=== PATIENT | male | born 1955 | race Caucasian/White ===

== ENCOUNTER 2018-05-05 07:30 | Day surgery (SDC) | payer OTHER ==
[~2018-05-05] VITALS: Ht 185.4 cm; Wt 126.1 kg
[~2018-05-05 07:30] MED LIST: ASPI325 PO; ASPI81CH PO; ATOR40TA PO; BENAML10/2 PO; Cholest Off450 MG PO; DICL75ER PO; FISH1000 PO; FURO40 PO; GLYMET5 PO; Lotrel 10-20 M1 EACH PO; MELATONIN 5 MG1 EACH PO; METF500C PO; MULTI VITAMIN1 EACH PO; OXYACE5T PO; POTCHL20ER PO; Prednisone20 MG PO; Prilosec Otc20 MG; Prilosec Otc20 MG PO; Sm Glucosamine1 EACH PO; TAMS.4ER PO; TRIHYD253A PO; UBID100 PO; Vitamin C1000 M1 PO; [UNRECOGNIZED DRUG - OTHER] PO
== END 2018-05-05 22:43 | disposition home or self-care (01) ==
LOC: ORSCMMR 07:30 → ORD 08:30 → ORSCMMR 22:43
PROVIDERS: Internal Medicine Gastroenterology
PROC: 0DBN8ZX Excision of Sigmoid Colon, Via Natural or Artificial Opening Endoscopic, Diagnostic (ICD-10-PCS; principal; 2018-05-05 08:30)
PROC: 0DBK8ZX Excision of Ascending Colon, Via Natural or Artificial Opening Endoscopic, Diagnostic (ICD-10-PCS; principal; 2018-05-05 08:30)
DX: Z12.11 Encounter for screening for malignant neoplasm of colon (principal); Z80.0 Family history of malignant neoplasm of digestive organs; D12.5 Benign neoplasm of sigmoid colon; D12.2 Benign neoplasm of ascending colon; I10 Essential (primary) hypertension; E11.9 Type 2 diabetes mellitus without complications; Z79.899 Other long term (current) drug therapy; Z79.82 Long term (current) use of aspirin; Z87.891 Personal history of nicotine dependence
CPT/HCPCS: 88305; J2250; J7030

== ENCOUNTER → 2019-01-19 | Outpatient (CLI) | payer OTHER | END | disposition home or self-care (01) | LOC: LAB SHORT 12:37 → PLD 12:37 | DX: C44.310 Basal cell carcinoma of skin of unspecified parts of face (principal) | CPT/HCPCS: 88305 ==

== ENCOUNTER → 2019-02-23 | Outpatient (CLI) | payer OTHER | END | disposition home or self-care (01) | LOC: LAB SHORT 08:54 → PLD 08:54 | DX: C44.310 Basal cell carcinoma of skin of unspecified parts of face (principal) | CPT/HCPCS: 88305 ==

== ENCOUNTER 2019-05-28 19:53 | Emergency (ER) | payer OTHER ==
[~2019-05-28] VITALS: Ht 185.4 cm; Wt 117.9 kg
== END 2019-05-28 20:36 | disposition home or self-care (01) ==
LOC: ER 19:53
DX: S90.112A Contusion of left great toe without damage to nail, initial encounter (principal); Z88.1 Allergy status to other antibiotic agents; Z88.8 Allergy status to other drugs, medicaments and biological substances; Z91.013 Allergy to seafood; Z91.030 Bee allergy status; Z87.891 Personal history of nicotine dependence; W22.8XXA Striking against or struck by other objects, initial encounter
CPT/HCPCS: 73660; 99283-25

== ENCOUNTER → 2019-09-30 | Outpatient (CLI) | payer MEDICARE | END | disposition home or self-care (01) | LOC: PLD 14:16 → LAB SHORT 14:16 | DX: L91.8 Other hypertrophic disorders of the skin (principal) | CPT/HCPCS: 88304 ==

== ENCOUNTER 2021-11-27 08:32 | Day surgery (SDC) | payer MEDICARE ==
[~2021-11-27] VITALS: Ht 185.4 cm; Wt 116.3 kg
[~2021-11-27 08:32] MED LIST changes: +Aspir 8181 MG PO; +Azor 5-20 MG T1 EACH PO; +COENZYME Q-1030 MG; +GLYBURIDE-METF1 EACH PO; +Lovastatin20 MG PO; +MELATONIN; +POTA10T PO
--- NOTE | 2021-11-27 08:57 | NUR ---
Ambulatory in Day Surgery History, Chart, Medications and Allergies reviewed before start of procedure. Lungs clear T/O to Auscultation. Patient confirms NPO status and agrees with scheduled surgery. Pre-Op teaching done. Pt verbalizes understanding. Patient States Post-Procedure ride home has been arranged.
--- NOTE | 2021-11-27 09:42 | NUR ---
11/27/21 0942 CRISTELA JACK History, Chart, Medications and Allergies reviewed before start of procedure. Patient confirms NPO status and agrees with scheduled surgery. 3-LEAD EKG REVIEWED WITH PHYSICIAN PRIOR TO START OF PROCEDURE. MONITOR INTACT WITH CONTINUOUS PULSE OXIMETRY AND INTERMITTENT BP. PATIENT DETERMINED TO BE ASA APPROPRIATE FOR PROPOFOL SEDATION PRIOR TO START OF PROCEDURE BY DR. PIMENTEL. 02 VIA POM MASK.
--- NOTE | 2021-11-27 10:55 | NUR ---
Patient States Post-Procedure ride home has been arranged. Discharge instructions reviewed with patient. Patient verbalizes understanding. Copy given to patient to take home. Discharged via wheelchair to private car for ride home.
== END 2021-11-27 11:00 | disposition home or self-care (01) ==
LOC: ORSCMMR 08:32 → ORD 09:30 → ORSCMMR 09:30
PROVIDERS: Internal Medicine Gastroenterology
PROC: 0DB58ZX Excision of Esophagus, Via Natural or Artificial Opening Endoscopic, Diagnostic (ICD-10-PCS; principal; 2021-11-27 09:30)
PROC: 0DB68ZX Excision of Stomach, Via Natural or Artificial Opening Endoscopic, Diagnostic (ICD-10-PCS; principal; 2021-11-27 09:30)
PROC: 0DB48ZX Excision of Esophagogastric Junction, Via Natural or Artificial Opening Endoscopic, Diagnostic (ICD-10-PCS; principal; 2021-11-27 09:30)
PROC: 0D758ZZ Dilation of Esophagus, Via Natural or Artificial Opening Endoscopic (ICD-10-PCS; principal; 2021-11-27 09:30)
PROC: 0DBH8ZX Excision of Cecum, Via Natural or Artificial Opening Endoscopic, Diagnostic (ICD-10-PCS; 2021-11-27 09:30)
DX: R13.14 Dysphagia, pharyngoesophageal phase (principal); Z86.010 Personal history of colon polyps; Z80.0 Family history of malignant neoplasm of digestive organs; K63.5 Polyp of colon; K44.9 Diaphragmatic hernia without obstruction or gangrene; I10 Essential (primary) hypertension; E11.9 Type 2 diabetes mellitus without complications; F32.A Depression, unspecified; Z87.891 Personal history of nicotine dependence; Z79.84 Long term (current) use of oral hypoglycemic drugs; Z79.82 Long term (current) use of aspirin; Z79.899 Other long term (current) drug therapy
CPT/HCPCS: 82947; 88305; 88342; A9270; C1726; J2250; J2704; J7120

== ENCOUNTER → 2022-10-08 | Outpatient (CLI) | payer MEDICARE | END | disposition home or self-care (01) | LOC: PLD 08:32 → LAB SHORT 08:32 → LAB 08:32 | DX: C44.319 Basal cell carcinoma of skin of other parts of face (principal); C44.619 Basal cell carcinoma of skin of left upper limb, including shoulder | CPT/HCPCS: 88305 ==

== ENCOUNTER → 2023-09-23 | Outpatient (CLI) | payer MEDICARE | LOC: LAB 14:45 → PLD 14:45 → LAB SHORT 14:45 | DX: C44.320 Squamous cell carcinoma of skin of unspecified parts of face (principal) | CPT/HCPCS: 88305 ==

== ENCOUNTER 2024-09-12 19:58 | Emergency (ER) | payer MEDICARE ==
[~2024-09-12] VITALS: Ht 185.4 cm; Wt 108.9 kg
[2024-09-12 20:30] LABS: BASOPHILS ABSOLUTE AUTO 0.03 K/mm3 (0.00-0.23); BASOPHILS PERCENT AUTO 1 % (0-2); EOSINOPHILS ABSOLUTE AUTO 0.03 K/mm3 (0.00-0.68); EOSINOPHILS PERCENT AUTO 1 % (0-6); Hematocrit 35.9 % (37.0-53.0); Hemoglobin 11.7 g/dL (13.5-17.5); IMMATURE GRAN ABSOLUTE AUTO 0.02 K/mm3 (0.00-0.10); IMMATURE GRAN PERCENT AUTO 0 % (0-1); LYMPHOCYTES ABSOLUTE AUTO 0.38 K/mm3 (0.84-5.20); LYMPHOCYTES PERCENT AUTO 7 % (21-46); MONOCYTES ABSOLUTE AUTO 0.47 K/mm3 (0.16-1.47); MONOCYTES PERCENT AUTO 8 % (4-13); Mean Corpuscular HGB 31.7 pg (26.0-34.0); Mean Corpuscular HGB Conc 32.6 g/dL (31.5-36.5); Mean Corpuscular Volume 97 fL (80-100); Mean Platelet Volume 9.1 fL (9.1-12.4); NEUTROPHILS ABSOLUTE AUTO 4.87 K/mm3 (1.96-9.15); NEUTROPHILS PERCENT AUTO 84 % (41-73); Platelet Count 83 K/mm3 (150-400); RDW Coefficient Variation 14.4 % (11.7-14.2); RDW Standard Deviation 51.2 fL (35.1-46.3); Red Blood Cell Count 3.69 M/mm3 (4.30-5.90)
[2024-09-12 20:49] LABS: Albumin, Blood 3.3 g/dL (3.4-5.0); Albumin/Globulin Ratio 0.9 (0.8-1.8); Bilirubin, Total 1.8 mg/dL (0.1-1.0); Bun/Creatinine Ratio 29.6 (12.0-20.0); Creatinine, Blood 0.95 mg/dL (0.60-1.20); Globulin, Blood 3.8 g/dL (2.2-4.0); Potassium, Blood 4.1 mmol/L (3.5-5.5); Total Protein, Blood 7.1 g/dL (6.4-8.2)
[2024-09-13] VITALS: BP 136/92
== END 2024-09-13 02:01 | disposition home or self-care (01) ==
LOC: ER 19:58
PROVIDERS: Emergency Medicine
DX: S82.62XA Displaced fracture of lateral malleolus of left fibula, initial encounter for closed fracture (principal); Z96.652 Presence of left artificial knee joint; Z85.46 Personal history of malignant neoplasm of prostate; Z87.891 Personal history of nicotine dependence; Z59.89 Other problems related to housing and economic circumstances; Z91.038 Other insect allergy status; Z88.1 Allergy status to other antibiotic agents; Z79.84 Long term (current) use of oral hypoglycemic drugs; Z79.899 Other long term (current) drug therapy; Z79.1 Long term (current) use of non-steroidal anti-inflammatories (NSAID); Z79.82 Long term (current) use of aspirin; W18.09XA Striking against other object with subsequent fall, initial encounter
CPT/HCPCS: 29515; 36415; 73562-LT; 73562-RT; 73610; 80053; 82550; 85025; 93005; 93010; 99284-25

== ENCOUNTER → 2025-01-07 | Emergency (ER) | payer MEDICARE ==
[~2025-01-07] VITALS: Ht 185.4 cm; Wt 108.9 kg
[~2025-01-07] MED LIST changes: +AMLODIPINE-BEN1 EAC2 PO; +CEPACOL THROAT1 EAC1 MT; +NUBEQA300 MG PO; +PANT20 PO; +Phytonadione 5 MG in NS 50 ML IV ONE; +[UNRECOGNIZED DRUG - CODE] PR
[2025-01-07 10:58] LABS: Bun/Creatinine Ratio 14.7 (12.0-20.0); Calcium, Blood 8.6 mg/dL (8.5-10.1); Creatinine, Blood 1.7 mg/dL (0.60-1.20); Potassium, Blood 3.8 mmol/L (3.5-5.5)
[2025-01-07 12:50] VITALS: BP 134/72
== END ==
LOC: ER 09:55
PROVIDERS: Emergency Medicine
DX: T83.091A Other mechanical complication of indwelling urethral catheter, initial encounter (principal); E11.9 Type 2 diabetes mellitus without complications; E78.00 Pure hypercholesterolemia, unspecified; Z87.448 Personal history of other diseases of urinary system; Z87.891 Personal history of nicotine dependence; Z79.899 Other long term (current) drug therapy; Z91.030 Bee allergy status; Z88.1 Allergy status to other antibiotic agents
CPT/HCPCS: 51700; 51798; 80048; 99283-25; J3430

== ENCOUNTER 2025-02-11 07:50 | Emergency (ER) | payer MEDICARE ==
[~2025-02-11] VITALS: Ht 185.4 cm; Wt 108.9 kg
[~2025-02-11 07:50] MED LIST changes: -Phytonadione 5 MG in NS 50 ML IV ONE
[2025-02-11] MEDS ORDERED: FUROSEMIDE40 MG PO (08:52)
[2025-02-11] MEDS ORDERED: TAMSULOSIN HCL0.4 M1 PO (08:52)
[2025-02-11 09:11] LABS: Source, Urine Foley catheter
[2025-02-11 09:17] LABS: Appearance, Urine Cloudy (Clear); Bilirubin, Urine Neg (Neg); Blood, Urine 5+ (Neg); Color, Urine Yellow (P-Yellow); Glucose Qualitative, Urine Neg (Neg); Ketones, Urine Neg (Neg); Leukocyte Esterase, Urine 2+ (Neg); Nitrite, Urine Neg (Neg); Protein, Urine 3+ (Neg); Urobilinogen, Urine 1+ (Normal)
[2025-02-11 09:24] LABS: Bacteria Few /hpf; Squamous Epithelial Cells Few /hpf (Few)
[2025-02-11 09:37] LABS: Red Blood Cells, Urine 50-100 /hpf (0-2)
[2025-02-11 09:39] LABS: Triple Phosphate Crystals Rare /hpf
[2025-02-11 10:30] VITALS: BP 130/91
== END 2025-02-11 10:48 | disposition home or self-care (01) ==
LOC: ER 07:50
PROVIDERS: Student in an Organized Health Care Education/Training Program
DX: T83.098A Other mechanical complication of other urinary catheter, initial encounter (principal); R82.71 Bacteriuria; R31.9 Hematuria, unspecified; I10 Essential (primary) hypertension; E78.00 Pure hypercholesterolemia, unspecified; E11.9 Type 2 diabetes mellitus without complications; F32.A Depression, unspecified; C61 Malignant neoplasm of prostate; C79.9 Secondary malignant neoplasm of unspecified site; Z88.1 Allergy status to other antibiotic agents; Z79.899 Other long term (current) drug therapy; Z79.84 Long term (current) use of oral hypoglycemic drugs; Z87.891 Personal history of nicotine dependence
CPT/HCPCS: 51702; 81001; 87086; 99283-25

== ENCOUNTER 2025-05-30 15:37 | Inpatient (IN) | payer MEDICARE ==
[~2025-05-30] VITALS: Ht 185.4 cm; Wt 108.3 kg
[2025-05-30] VITALS (12 sets, daily range): BP systolic 72–110; BP diastolic 49–64
[~2025-05-30 15:37] MED LIST changes: +DOCU100 PO; +FUROSEMIDE40 MG PO; +LACT10SY PO; +TAMSULOSIN HCL0.4 M1 PO
[2025-05-30] MEDS ORDERED: NS 1,000 ML IV ONE (15:38)
[2025-05-30] MEDS ORDERED: NS 1,000 ML IV SCH (15:45)
[2025-05-30 16:19] LABS: Hematocrit 24.1 % (37.0-53.0); Hemoglobin 8.0 g/dL (13.5-17.5); Mean Corpuscular HGB Conc 33.2 g/dL (31.5-36.5); Mean Corpuscular Volume 93 fL (80-100); NRBC ABSOLUTE 0.00 K/mm3 (0.00-0.02); NRBC Auto 0.0 /100 WBC (0.0-0.2); Platelet Count 110 K/mm3 (150-400); RDW Coefficient Variation 15.9 % (11.7-14.2); RDW Standard Deviation 53.2 fL (35.1-46.3)
[2025-05-30 16:49] LABS: Alanine Aminotransfer (ALT/SGP 75.0 U/L (12-78); Albumin, Blood 2.4 g/dL (3.4-5.0); Albumin/Globulin Ratio 0.7 (0.8-1.8); Anion Gap 11.0 mmol/L (3-11); Aspartate Aminotrans (AST/SGOT 55.0 U/L (12-37); Bilirubin, Total 1.1 mg/dL (0.1-1.0); Blood Urea Nitrogen 21.0 mg/dL (8-24); CO2, Blood 26.0 mmol/L (21-32); Calcium, Blood 8.5 mg/dL (8.5-10.1); Chloride, Blood 100.0 mmol/L (98-108); Creatinine, Blood 0.9 mg/dL (0.60-1.20); Globulin, Blood 3.5 g/dL (2.2-4.0); Glucose, Blood 151.0 mg/dL (70-99); Potassium, Blood 3.0 mmol/L (3.5-5.5); Sodium, Blood 134.0 mmol/L (136-145); Total Protein, Blood 5.9 g/dL (6.4-8.2)
[2025-05-30 17:00] LABS: BASOPHILS ABSOLUTE MAN 0.06 K/mm3 (0.00-0.23); BASOPHILS PERCENT MAN 1 % (0-2); EOSINOPHILS ABSOLUTE MAN 0.00 K/mm3 (0.00-0.68); EOSINOPHILS PERCENT MAN 0 % (0-6); LYMPHOCYTES % ATYPICAL MANUAL 1 % (0-0); LYMPHOCYTES ABSOLUTE MAN 0.89 K/mm3 (0.84-5.20); LYMPHOCYTES PERCENT MAN 12 % (21-46); METAMYELOCYTE ABSOLUTE MAN 0.13 K/mm3 (0.00-0.00); METAMYELOCYTE PERCENT MAN 2 % (0-0); MONOCYTES ABSOLUTE MAN 0.13 K/mm3 (0.16-1.47); MONOCYTES PERCENT MAN 2 % (4-13); MYELOCYTE ABSOLUTE MAN 0.27 K/mm3 (0.00-0.00); MYELOCYTE PERCENT MAN 4 % (0-0); NEUTROPHILS ABSOLUTE MAN 5.36 K/mm3 (1.96-9.15); SEG NEUTROPHILS PERCENT MAN 78 % (41-73)
[2025-05-30 17:17] LABS: Magnesium, Blood 1.7 mg/dL (1.6-2.4)
[2025-05-30 17:18] LABS: Thyroid Stimulating Hormone 1.4 uIU/mL (0.360-4.800)
[2025-05-30] MEDS ORDERED: Ondansetron HCl 2 MG / ML 2ML Vial IV PRN (19:10)
[2025-05-30] MEDS ORDERED: Magnesium Sulf 2 GM/Water 50ML 50 ML IV ONE (19:20)
[2025-05-30] MEDS ORDERED: Potassium Chl 20MEQ/Water100ML 100 ML IV ONE (19:25)
[2025-05-30] MEDS ORDERED: Lidocaine 2% Jelly Uro-Jet UR ONE (20:40)
[2025-05-30] MEDS ORDERED: NUBEQA 300 MG PO SCH (22:32)
--- NOTE | 2025-05-30 23:39 | NUR ---
ADMISSION PT ARRIVED FROM ED VIA [facility]IAHCHER ON MONITOR AND WITH RN. PT WAS PLACED IN BED IN ICU 15, ATTACHED TO MONITOR. PT DENIES PAIN AT THIS TIME. PT ON AMIO GTT - TITRTAION PER FLOWSHEET. PT ARRIVED, BP SOFT, IMPROVED ONCE HR DOWNTREADED. PT IS IN AN AFIB/AFLUTTER HR 90'S-140'S. VSS OTHERWISE.
--- NOTE | 2025-05-30 23:43 | NUR ---
SABILLON CATH PT WITH CHRONIC INDWELLING SABILLON CATH. PT EDUCATED ON NEED TO EXCHANGE SABILLON CATH UPON ADMISSION TO HOSPITAL. PT STATES HE DOES NOT WANT SABILLON CATH EXCHANGED AT THIS TIME. PT STATES "VERY DIFFICULT TO PLACE", AND DECLINES SABILLON EXCHANGE AT THIS TIME.
--- NOTE | 2025-05-30 23:45 | NUR ---
ADMISSION SKIN NOTE NOTED UPON ADMIT, BREAKDOWN TO ARIELLE BUTTOCKS. MD PEACOCK NOTIFIED OF ABOVE, NO NEW ORDERS AT THIS TIME. SEE PAPER CHART FOR SKIN PHOTO. PT EDUCATED ON NEED TO REPOSITION Q2H.
[2025-05-31] VITALS (44 sets, daily range): BP systolic 92–141; BP diastolic 44–92
[2025-05-31 03:55] LABS: Hematocrit 22.8 % (37.0-53.0); Hemoglobin 7.6 g/dL (13.5-17.5); Mean Corpuscular HGB Conc 33.3 g/dL (31.5-36.5); Mean Corpuscular Volume 94 fL (80-100); NRBC ABSOLUTE 0.02 K/mm3 (0.00-0.02); NRBC Auto 0.4 /100 WBC (0.0-0.2); Platelet Count 105 K/mm3 (150-400); RDW Coefficient Variation 15.9 % (11.7-14.2); RDW Standard Deviation 54.3 fL (35.1-46.3)
[2025-05-31 04:07] LABS: Prothrombin Time Results 12.4 Sec (9.7-11.5)
[2025-05-31 04:17] LABS: Alanine Aminotransfer (ALT/SGP 68.0 U/L (12-78); Albumin, Blood 2.4 g/dL (3.4-5.0); Albumin/Globulin Ratio 0.7 (0.8-1.8); Anion Gap 6.0 mmol/L (3-11); Aspartate Aminotrans (AST/SGOT 44.0 U/L (12-37); Bilirubin, Total 0.8 mg/dL (0.1-1.0); Blood Urea Nitrogen 17.0 mg/dL (8-24); CO2, Blood 27.0 mmol/L (21-32); Calcium, Blood 8.0 mg/dL (8.5-10.1); Chloride, Blood 105.0 mmol/L (98-108); Creatinine, Blood 0.84 mg/dL (0.60-1.20); Globulin, Blood 3.4 g/dL (2.2-4.0); Glucose, Blood 192.0 mg/dL (70-99); Magnesium, Blood 2.2 mg/dL (1.6-2.4); Potassium, Blood 3.0 mmol/L (3.5-5.5); Sodium, Blood 135.0 mmol/L (136-145); Total Protein, Blood 5.8 g/dL (6.4-8.2)
[2025-05-31 04:18] LABS: BAND PERCENT MAN 6 % (0-8); BASOPHILS ABSOLUTE MAN 0.05 K/mm3 (0.00-0.23); BASOPHILS PERCENT MAN 1 % (0-2); EOSINOPHILS ABSOLUTE MAN 0.05 K/mm3 (0.00-0.68); EOSINOPHILS PERCENT MAN 1 % (0-6); LYMPHOCYTES ABSOLUTE MAN 0.42 K/mm3 (0.84-5.20); LYMPHOCYTES PERCENT MAN 8 % (21-46); MONOCYTES ABSOLUTE MAN 0.26 K/mm3 (0.16-1.47); MONOCYTES PERCENT MAN 5 % (4-13); NEUTROPHILS ABSOLUTE MAN 4.49 K/mm3 (1.96-9.15); SEG NEUTROPHILS PERCENT MAN 79 % (41-73)
--- NOTE | 2025-05-31 05:35 | NUR ---
SHIFT SUMMARY PT IS A&O X4, ABLE TO SPENCER, FOLLOWS COMMANDS, AND ABLE TO MAKE NEEDS KNOWN. PT IS ON RA. PT IS IN A AFIB/A FLUTTER. PT WITH CARB CONTROL DIET, SMALL INCONTINENT BM UPON ARRIVAL TO UNIT. SABILLON CATH PATENT (SEE SABILLON CATH NOTE). WOUND TO BUTTOCKS (SEE SKIN NOTE). PIV X3. AMIO GTT - TITRATION PER JAN. POTASSIUM 3.0 THIS AM, NOTIFIED, ORDER TO REPLACE POTASSIUM WITH 40MEQ'S IV KCL. PT DENIES PAIN. VSS OVERNIGHT. PT ENCOURAGED TO REPOSITION Q2H, PT AGREEABLE BUT DOES NEED ENCOURAGMENT - EDUCATED PT ON NEED TO REPOSITION FREQUENTLY TO PREVENT FURTHER SKIN BREAK DOWN.
[2025-05-31] MEDS ORDERED: Insulin Human Lispro 100 Units/ML 3ML Syringe SC SCH ×2 (07:30)
--- NOTE | 2025-05-31 10:34 | NUR ---
ASSUMPTION OF CARE ASSUMED CARE OF PATIENT AT APPROXIMATELY 0700. PT RESTING IN BED, ALERT AND ORIENTED X4. PT ANSWERS QUESTIONS APPROPRIATELY, FOLLOWS DIRECTION WHEN PROMTPED AND IS ABLE TO MAKE HIS NEEDS KNOWN, PT MOVES EXTREMITIES EQUALLY BILATERALLY, ASSISTS WITH TURNS. PT DENIES PAIN AT TIME OF ASSESSMENT. HR 100'S AFIB AT START OF SHIFT, DURING REPOSITIONING PT CONVERTED TO A FAST REGULAR RHYTHM WITH A RATE IN THE 130-150'S, EKG PERFORMED WHICH SHOWED SINUS TACH WITH A RATE OF 146BPM, DR. FORD INFORMED, ORDERS RECEIVED. PT HR CURRENTLY 70'S SINUS, MAP >65, PT DENIES CP/PRESSURE. AMIODARONE DRIP INFUSING AT 0.5MG/MIN. PT ON RA, OXYGEN SATURATION >95%. ABDOMEN SOFT, BOWEL TONES ACTIVE THROGHOUT, PT DENEIS N/V. PT HAS CHRONIC INDWELLING SABILLON IN PLACE PATENT DRIANING YELLOW URINE TO GRAVITY. PIV IN PLACE TO LEFT HAND, LAC AND JACKIE. BED IN LOWEST POSITION, CALL LIGHT WITHIN REACH, CARE CONTINUES.
[2025-05-31] MEDS ORDERED: CO Q10100 MG PO (12:22)
[2025-05-31] MEDS ORDERED: PRESERVISION A1 EAC1 PO (12:23)
--- NOTE | 2025-05-31 12:29 | NUR ---
PT UPDATE HOME MEDICATION LIST RECONCILLED WITH PTS. . CARE CONTINTUES.
[2025-05-31] MEDS ORDERED: Amiodarone HCl 450 MG in NS 250 ML IV SCH (13:05)
--- NOTE | 2025-05-31 17:46 | NUR ---
SHIFT SUMMARY PT CONTINUES TO REST IN BED, ALERT AND ORIENTED X4. PT ANSWERS QUESTIONS APPROPRIATELY, FOLLOWS DIRECTION WHEN PROMPTED AND IS ABLE TO MAKE HIS NEEDS KNOWN. PT MOVES EXTREMITIES EQUALLY BILATERALLY, ASSITS WITH TURNS. HR 60-140'S THIS SHIFT, ALTERNATING BETWEEN SINUS AND AFIB, AMIODARONE DRIP OFF AT APPROXIMATELY 1725, SEE FLOWSHEET. MAP >65, PT HAS DENIED CP/PRESSURE THIS SHIFT. PT ON RA, OXYGEN SATURATION >95%. ABDOMEN SOFT, BOWEL TONES ACTIVE THROUGHOUT. SABILLON IN PLACE PATENT DRAINING YELLOW URINE TO GRAVITY. PIV IN PLACE TO LAC AND JACKIE SL. BED IN LOWEST POSITION, CALL LIGHT WITHIN REACH, CARE CONTINUES.
--- NOTE | 2025-05-31 19:45 | NUR ---
ASSUMPTION OF CARE ASSUMED PT'S CARE AT 1900,BEDSIDE REPORT COMPLETED.PT IN BED WIDE AWAKE.PLAN OF CARE REVIEWED.SABILLON PATENT DRAINING CLEAR YELLOW URINE.PT STATES THAT THE SABILLON WAS CHANGED 11/2 WEEKS AGO.PT DENIES PAIN,DENIES NEEDS AT THIS TIME.CALL LIGHT AND PT'S ITEMS WITHIN REACH.MONITORING ONGOING PER CAREPLAN.
[2025-05-31] MEDS ORDERED: Arginine/Glutamine/Calcium Hmb 1 Packet PO SCH (21:00)
[2025-06-01] VITALS (13 sets, daily range): BP systolic 101–143; BP diastolic 55–96
[2025-06-01 04:24] LABS: Hematocrit 21.8 % (37.0-53.0); Hemoglobin 6.9 g/dL (13.5-17.5); Mean Corpuscular HGB Conc 31.7 g/dL (31.5-36.5); Mean Corpuscular Volume 95 fL (80-100); NRBC ABSOLUTE 0.02 K/mm3 (0.00-0.02); NRBC Auto 0.6 /100 WBC (0.0-0.2); Platelet Count 105 K/mm3 (150-400); RDW Coefficient Variation 16.0 % (11.7-14.2); RDW Standard Deviation 55.1 fL (35.1-46.3)
[2025-06-01 04:57] LABS: BAND PERCENT MAN 7 % (0-8); BASOPHILS ABSOLUTE MAN 0.03 K/mm3 (0.00-0.23); BASOPHILS PERCENT MAN 1 % (0-2); EOSINOPHILS ABSOLUTE MAN 0.03 K/mm3 (0.00-0.68); EOSINOPHILS PERCENT MAN 1 % (0-6); LYMPHOCYTES ABSOLUTE MAN 0.32 K/mm3 (0.84-5.20); LYMPHOCYTES PERCENT MAN 9 % (21-46); METAMYELOCYTE ABSOLUTE MAN 0.07 K/mm3 (0.00-0.00); METAMYELOCYTE PERCENT MAN 2 % (0-0); MONOCYTES ABSOLUTE MAN 0.25 K/mm3 (0.16-1.47); MONOCYTES PERCENT MAN 7 % (4-13); MYELOCYTE ABSOLUTE MAN 0.14 K/mm3 (0.00-0.00); MYELOCYTE PERCENT MAN 4 % (0-0); NEUTROPHILS ABSOLUTE MAN 2.72 K/mm3 (1.96-9.15); SEG NEUTROPHILS PERCENT MAN 69 % (41-73)
[2025-06-01 07:16] LABS: Alanine Aminotransfer (ALT/SGP 50.0 U/L (12-78); Albumin, Blood 2.3 g/dL (3.4-5.0); Albumin/Globulin Ratio 0.7 (0.8-1.8); Anion Gap 6.0 mmol/L (3-11); Aspartate Aminotrans (AST/SGOT 31.0 U/L (12-37); Bilirubin, Total 0.7 mg/dL (0.1-1.0); Blood Urea Nitrogen 15.0 mg/dL (8-24); CO2, Blood 27.0 mmol/L (21-32); Calcium, Blood 8.6 mg/dL (8.5-10.1); Chloride, Blood 107.0 mmol/L (98-108); Creatinine, Blood 0.86 mg/dL (0.60-1.20); Globulin, Blood 3.3 g/dL (2.2-4.0); Glucose, Blood 97.0 mg/dL (70-99); Potassium, Blood 3.8 mmol/L (3.5-5.5); Sodium, Blood 136.0 mmol/L (136-145); Total Protein, Blood 5.6 g/dL (6.4-8.2)
--- NOTE | 2025-06-01 07:31 | NUR ---
PT MONITORED DURING THE SHIFT.PT SLEPT MOST OF THE NIGHT,USED THE CALL LIGHT APPROPRIATELY.PT'S HR HAS BEEN IN THE 70-90'S MOST OF THE NIGHT.AT 0645 THE HR WENT UP INTO THE 140'S AND SUSTAINING.PT DENIED CHEST PAIN/DISCOMFORT/SOB/PALPATION.EKG OBTAINED SHOWED ST WITH SHORT MI WITH OCCASSIONAL PVCS AND FUSION COMPLEXES.DR. PEACOCK NOTIFIED AT BEDSIDE. GAVE AN ORDER TO GIVE THE AM DOSE OF METOPROLOL EARLY.PT'S HEMOGLOBIN LOW AT 6.9,WBC LOW AT 3.59.DR PEACOCK NOTIFIED.PRBC ORDER GIVEN.PT RESTING IN BED,DENIES PAIN,DENIES NEEDS AT THIS TIME.REPORT GIVEN TO DAYSHIFT NURSE EMELY.
[2025-06-01] MEDS ORDERED: NS 500 ML IV ONE (08:53)
[2025-06-01] MEDS ORDERED: NS 500 ML IV SCH (08:55)
[2025-06-01 14:27] LABS: Hematocrit 24.5 % (37.0-53.0); Hemoglobin 8.0 g/dL (13.5-17.5)
[2025-06-01 15:25] LABS: Ferritin, Serum 281.0 ng/mL (26-388); Total Iron Binding Capacity 183.0 ug/dL (250-450)
--- NOTE | 2025-06-01 20:41 | NUR ---
ASSUMPTION OF CARE CARE OF PT ASSUMED FOLLOWING BEDSIDE SHIFT REPORT FROM DAY RN. PT SITTING IN BED ALERT AND ORIENTED TO ALL. AFEBRILE, DENYING PAIN. A FIB WITH RATE OF 110- ALL PO CARDIAC MEDS ON JAN WILL BE ADMINISTERED. LUNGS CLEAR. PT DENIES CHEST PAIN/PRESSURE AND SOB. BOWEL SOUNDS ACTIVE. PT DENIES AB PAIN, N/V. STILL ATTEMPTING TO COLLECT STOOL SAMPLE. CHRONIC SABILLON IN PLACE- PT REPORTEDLY DOES NOT WANT NURSING STAFF TO REPLACE; WANTS UROLOGY TO REPLACE. SALINE LOCKED WILL REVIEW AND CONTINUE PLAN OF CARE.
[2025-06-02] VITALS (8 sets, daily range): BP systolic 119–132; BP diastolic 58–81
[2025-06-02 04:05] LABS: Hematocrit 24.4 % (37.0-53.0); Hemoglobin 7.8 g/dL (13.5-17.5); Mean Corpuscular HGB Conc 32.0 g/dL (31.5-36.5); Mean Corpuscular Volume 96 fL (80-100); NRBC ABSOLUTE 0.03 K/mm3 (0.00-0.02); NRBC Auto 0.6 /100 WBC (0.0-0.2); Platelet Count 102 K/mm3 (150-400); RDW Coefficient Variation 17.1 % (11.7-14.2); RDW Standard Deviation 58.8 fL (35.1-46.3)
[2025-06-02 04:29] LABS: Anion Gap 9.0 mmol/L (3-11); Blood Urea Nitrogen 24.0 mg/dL (8-24); CO2, Blood 25.0 mmol/L (21-32); Calcium, Blood 8.5 mg/dL (8.5-10.1); Chloride, Blood 107.0 mmol/L (98-108); Creatinine, Blood 0.76 mg/dL (0.60-1.20); Glucose, Blood 135.0 mg/dL (70-99); Potassium, Blood 4.5 mmol/L (3.5-5.5); Sodium, Blood 136.0 mmol/L (136-145)
[2025-06-02 04:35] LABS: BAND PERCENT MAN 5 % (0-8); BASOPHILS ABSOLUTE MAN 0.00 K/mm3 (0.00-0.23); BASOPHILS PERCENT MAN 0 % (0-2); EOSINOPHILS ABSOLUTE MAN 0.15 K/mm3 (0.00-0.68); EOSINOPHILS PERCENT MAN 3 % (0-6); LYMPHOCYTES ABSOLUTE MAN 0.51 K/mm3 (0.84-5.20); LYMPHOCYTES PERCENT MAN 10 % (21-46); METAMYELOCYTE ABSOLUTE MAN 0.10 K/mm3 (0.00-0.00); METAMYELOCYTE PERCENT MAN 2 % (0-0); MONOCYTES ABSOLUTE MAN 0.30 K/mm3 (0.16-1.47); MONOCYTES PERCENT MAN 6 % (4-13); MYELOCYTE ABSOLUTE MAN 0.41 K/mm3 (0.00-0.00); MYELOCYTE PERCENT MAN 8 % (0-0); NEUTROPHILS ABSOLUTE MAN 3.66 K/mm3 (1.96-9.15); SEG NEUTROPHILS PERCENT MAN 66 % (41-73)
[2025-06-03] VITALS (9 sets, daily range): BP systolic 116–140; BP diastolic 60–88
--- NOTE | 2025-06-03 01:01 | NUR ---
PATIENT TRANSFER PATIENT TRANSFERED TO MEDICAL FLOOR AT 0100. REPORT GIVEN TO NATTY HALL. ALL QUESTIONS ANSWERED. NO ACUTE EVENTS DURING TRANSFER.
[2025-06-03] MEDS ORDERED: Prochlorperazine Edisylate 10 mg Vial IV ONE (01:30)
[2025-06-03 05:48] LABS: BASOPHILS ABSOLUTE AUTO 0.03 K/mm3 (0.00-0.23); BASOPHILS PERCENT AUTO 1 % (0-2); Hematocrit 25.2 % (37.0-53.0); Hemoglobin 8.0 g/dL (13.5-17.5); LYMPHOCYTES ABSOLUTE AUTO 0.35 K/mm3 (0.84-5.20); LYMPHOCYTES PERCENT AUTO 5 % (21-46); MONOCYTES ABSOLUTE AUTO 0.49 K/mm3 (0.16-1.47); MONOCYTES PERCENT AUTO 7 % (4-13); Mean Corpuscular HGB Conc 31.7 g/dL (31.5-36.5); Mean Corpuscular Volume 98 fL (80-100); NRBC ABSOLUTE 0.02 K/mm3 (0.00-0.02); NRBC Auto 0.3 /100 WBC (0.0-0.2); Platelet Count 109 K/mm3 (150-400); RDW Coefficient Variation 17.2 % (11.7-14.2); RDW Standard Deviation 60.3 fL (35.1-46.3)
[2025-06-03 05:53] LABS: EOSINOPHILS ABSOLUTE AUTO 0.08 K/mm3 (0.00-0.68); EOSINOPHILS PERCENT AUTO 1 % (0-6); IMMATURE GRAN ABSOLUTE AUTO 0.67 K/mm3 (0.00-0.10); IMMATURE GRAN PERCENT AUTO 10 % (0-1); NEUTROPHILS ABSOLUTE AUTO 4.96 K/mm3 (1.96-9.15); NEUTROPHILS PERCENT AUTO 75 % (41-73)
[2025-06-03 06:13] LABS: BAND PERCENT MAN 6 % (0-8); BASOPHILS ABSOLUTE MAN 0.13 K/mm3 (0.00-0.23); BASOPHILS PERCENT MAN 2 % (0-2); EOSINOPHILS ABSOLUTE MAN 0.00 K/mm3 (0.00-0.68); EOSINOPHILS PERCENT MAN 0 % (0-6); LYMPHOCYTES ABSOLUTE MAN 0.26 K/mm3 (0.84-5.20); LYMPHOCYTES PERCENT MAN 4 % (21-46); METAMYELOCYTE ABSOLUTE MAN 0.06 K/mm3 (0.00-0.00); METAMYELOCYTE PERCENT MAN 1 % (0-0); MONOCYTES ABSOLUTE MAN 0.39 K/mm3 (0.16-1.47); MONOCYTES PERCENT MAN 6 % (4-13); MYELOCYTE ABSOLUTE MAN 0.26 K/mm3 (0.00-0.00); MYELOCYTE PERCENT MAN 4 % (0-0); NEUTROPHILS ABSOLUTE MAN 5.46 K/mm3 (1.96-9.15); SEG NEUTROPHILS PERCENT MAN 77 % (41-73)
--- NOTE | 2025-06-03 06:35 | NUR ---
SUMMARY RECVD PT FROM ICU15 AROUND 1AM, A&O X4, VSS, W/ IFC, W/ MEPILEX AT [facility], SKIN INTACT. HOOKED ON TELE-AF READING. HAD BOWEL MOVEMENT AND MANISHA CARE DONE. SLEPT VERY COMFORTABLY. POSSIBLE DISCHARGE TODAY.
[2025-06-03 06:37] LABS: Alanine Aminotransfer (ALT/SGP 39 U/L (12-78); Albumin, Blood 2.4 g/dL (3.4-5.0); Albumin/Globulin Ratio 0.7 (0.8-1.8); Anion Gap 9 mmol/L (3-11); Aspartate Aminotrans (AST/SGOT 26 U/L (12-37); Bilirubin, Total 1.0 mg/dL (0.1-1.0); Blood Urea Nitrogen 21 mg/dL (8-24); CO2, Blood 25 mmol/L (21-32); Calcium, Blood 9.3 mg/dL (8.5-10.1); Chloride, Blood 106 mmol/L (98-108); Creatinine, Blood 0.75 mg/dL (0.60-1.20); Globulin, Blood 3.6 g/dL (2.2-4.0); Glucose, Blood 147 mg/dL (70-99); Magnesium, Blood 1.8 mg/dL (1.6-2.4); Potassium, Blood 4.8 mmol/L (3.5-5.5); Sodium, Blood 135 mmol/L (136-145); Total Protein, Blood 6.0 g/dL (6.4-8.2)
[2025-06-03] MEDS ORDERED: Digoxin 0.125 MG in NS 4.5 ML IV SCH (10:00)
[2025-06-03] MEDS ORDERED: Mag Sulfate 1 GM/D5% 100ML 100 ML IV STA (10:14)
[2025-06-03 11:17] LABS: Stool Occult Blood Guaiac 1 Neg (Neg)
--- NOTE | 2025-06-03 16:59 | NUR ---
SHIFT SUMMARY: PATIENT A+O X4. PLEASANT AND COOPERATIVE WITH ALL CARE. PATIENTS S1, S2 HEARD ON ASCULTATION. HEART RYHTHM A-FLUTTER c BIGEMINAL PVC'S AND BBB. RATE ABOVE 100. PATIENT HAS NO SYMPTOMS OF THIS RATE AND OR RYHTHM. SPOUSE IN ROOM FOR MAJORITY OF THIS DAY. PATIENT STARTED ON DIGOXIN D/T ABNORMAL VALUES. PATIENT TO HAVE POSSIBLE CARDIOVERSION ON 7-14 POST MAGNOLIA. PATIENT REMAINS BED REST. SABILLON CATH DRAINING TO GRAVITY. THIS GENTLEMAN HAS REMAINED ON ROOM AIR WITH NO DIFFICULTY. PLAN OF CARE ONGOING AT THIS TIME, WILL CONTINUE TO MONITOR.
[2025-06-04 04:24] VITALS: BP 129/68
[2025-06-04 05:26] LABS: Hematocrit 26.4 % (37.0-53.0); Hemoglobin 8.4 g/dL (13.5-17.5); Mean Corpuscular HGB Conc 31.8 g/dL (31.5-36.5); Mean Corpuscular Volume 97 fL (80-100); NRBC ABSOLUTE 0.00 K/mm3 (0.00-0.02); NRBC Auto 0.0 /100 WBC (0.0-0.2); Platelet Count 102 K/mm3 (150-400); RDW Coefficient Variation 17.0 % (11.7-14.2); RDW Standard Deviation 59.0 fL (35.1-46.3)
--- NOTE | 2025-06-04 05:42 | NUR ---
SHIFT SUMMARY PT HERE FOR AFIB RVR. PT HAS BEEN AOX4, CALM AND COOPERATIVE. HE HAS CALLED APPROPRIATELY. PT HAS BEEN ON TELEMETRY, NO EVENTS OVERNIGHT. PT HAS BEEN BEDREST. HE HAS SABILLON CATH, PATENT AND DRAINING TO GRAVITY. PT INCONTINENT OF BOWEL. HE HAS HAD NO COMPLAINTS OVERNIGHT. NO ACUTE EVENTS OVERNIGHT.
[2025-06-04 05:47] LABS: Magnesium, Blood 2.0 mg/dL (1.6-2.4)
[2025-06-04 05:48] LABS: Anion Gap 8.0 mmol/L (3-11); Blood Urea Nitrogen 22.0 mg/dL (8-24); CO2, Blood 27.0 mmol/L (21-32); Calcium, Blood 9.5 mg/dL (8.5-10.1); Chloride, Blood 103.0 mmol/L (98-108); Creatinine, Blood 0.81 mg/dL (0.60-1.20); Glucose, Blood 96.0 mg/dL (70-99); Potassium, Blood 4.7 mmol/L (3.5-5.5); Sodium, Blood 133.0 mmol/L (136-145)
[2025-06-04 05:55] LABS: BAND PERCENT MAN 6 % (0-8); BASOPHILS ABSOLUTE MAN 0.00 K/mm3 (0.00-0.23); BASOPHILS PERCENT MAN 0 % (0-2); EOSINOPHILS ABSOLUTE MAN 0.00 K/mm3 (0.00-0.68); EOSINOPHILS PERCENT MAN 0 % (0-6); LYMPHOCYTES ABSOLUTE MAN 0.52 K/mm3 (0.84-5.20); LYMPHOCYTES PERCENT MAN 6 % (21-46); MONOCYTES ABSOLUTE MAN 0.35 K/mm3 (0.16-1.47); MONOCYTES PERCENT MAN 4 % (4-13); NEUTROPHILS ABSOLUTE MAN 7.90 K/mm3 (1.96-9.15); SEG NEUTROPHILS PERCENT MAN 84 % (41-73)
[2025-06-04 07:16] VITALS: BP 115/79
--- NOTE | 2025-06-04 10:30 | NUR ---
TELE NOTIFICATION NOTE: RECEIVED A CALL FROM ARMIDA BELLAMY AT 1025. PER ARMIDA PATIENT HR TRENDING UP SINCE BEGINNING OF SHIFT AND FOR THE LAST 10 MINS IT IS SUSTAINING IN THE 130'S BPM, AFIB. PATIENT LAYING IN BED, DENIES CP/PRESSURE, SOB, N/V. NOTIFIED DR. LOGAN araya THIS CONCERN, RECEIVED ORDER TO GIVE 25 MG PO METOPROLOL TARTRATE NOW.
[2025-06-04 10:43] VITALS: BP 105/59
[2025-06-04 11:52] VITALS: BP 108/63
[2025-06-04 15:34] VITALS: BP 106/60
--- NOTE | 2025-06-04 18:38 | NUR ---
SHIFT SUMMARY: PATIENT HAD OT EPISODE THIS AM HR WAS SUSTAINING IN THE 130'S FOR ABOUT 10 MINS, AFIB. DR. FORD WAS AWARE, DID ORDER OT DOSE OF PO METOPROLOL AND WAS GIVEN. SINCE THEN, PATIENT HR RANGES IN THE 80'S TO LOW 100'S BPM THE REST OF SHIFT. PATIENT CONTINUES TO REPORTS NO CP/PRESSURE, SOB, N/V AND DIZZINESS. CARDIOLOGY FOLLOWING CARE, PLAN NPO AT [place] FOR POSSIBLE MAGNOLIA TOMORROW AND CONSIDERING OF ELECTRICAL CONVERSION, WHICH PATIENT IS AWARE c PLAN OF CARE. PATIENT HAS GREAT APPETITE, CHRONIC SABILLON, PATENT DRAINING YELLOW URINE TO GRAVITY. VITALS SIGNS REVIEWED. BED IN LOWEST POSITION. CALL LIGHT IN RAECH.
[2025-06-04 19:27] VITALS: BP 121/61
[2025-06-04] MEDS ORDERED: Magnesium Hydroxide Conc 10 ML UDC PO ONE (21:35)
[2025-06-05 00:14] VITALS: BP 111/66
[2025-06-05 05:23] VITALS: BP 118/60
[2025-06-05 05:55] LABS: BASOPHILS ABSOLUTE AUTO 0.01 K/mm3 (0.00-0.23); BASOPHILS PERCENT AUTO 0 % (0-2); EOSINOPHILS ABSOLUTE AUTO 0.06 K/mm3 (0.00-0.68); EOSINOPHILS PERCENT AUTO 1 % (0-6); Hematocrit 24.7 % (37.0-53.0); Hemoglobin 7.8 g/dL (13.5-17.5); IMMATURE GRAN ABSOLUTE AUTO 0.23 K/mm3 (0.00-0.10); IMMATURE GRAN PERCENT AUTO 3 % (0-1); LYMPHOCYTES ABSOLUTE AUTO 0.45 K/mm3 (0.84-5.20); LYMPHOCYTES PERCENT AUTO 6 % (21-46); MONOCYTES ABSOLUTE AUTO 0.67 K/mm3 (0.16-1.47); MONOCYTES PERCENT AUTO 9 % (4-13); Mean Corpuscular HGB Conc 31.6 g/dL (31.5-36.5); Mean Corpuscular Volume 97 fL (80-100); NEUTROPHILS ABSOLUTE AUTO 6.44 K/mm3 (1.96-9.15); NEUTROPHILS PERCENT AUTO 82 % (41-73); NRBC ABSOLUTE 0.00 K/mm3 (0.00-0.02); NRBC Auto 0.0 /100 WBC (0.0-0.2); Platelet Count 107 K/mm3 (150-400); RDW Coefficient Variation 17.0 % (11.7-14.2); RDW Standard Deviation 60.1 fL (35.1-46.3)
--- NOTE | 2025-06-05 06:17 | NUR ---
SHIFT SUMMARY PT SLEPT INTERMITTENTLY DURING THE NIGHT. SABILLON DRAINING YELLOW URINE. TELE SHOWING AFLUTTER WITH CONTROLLED RATE THIS SHIFT. PT WITH INCONT MEDIUM SIZED STOOL. NPO AFTER MIDNIGHT FOR PLANNED MAGNOLIA AND POSSIBLE CARDIOVERSION. BED IN LOWEST POSITION, CALL LIGHT WITHIN REACH, SIDERAILS UP X2.
[2025-06-05 06:28] LABS: Anion Gap 8 mmol/L (3-11); Blood Urea Nitrogen 22 mg/dL (8-24); CO2, Blood 27 mmol/L (21-32); Calcium, Blood 9.4 mg/dL (8.5-10.1); Chloride, Blood 105 mmol/L (98-108); Creatinine, Blood 0.83 mg/dL (0.60-1.20); Glucose, Blood 123 mg/dL (70-99); Potassium, Blood 4.6 mmol/L (3.5-5.5); Sodium, Blood 135 mmol/L (136-145)
[2025-06-05 07:53] VITALS: BP 107/61
[2025-06-05] MEDS ORDERED: Polyethylene Glycol 3350 17 gm PO SCH (09:00)
--- NOTE | 2025-06-05 09:00 | NUR ---
pt laying in bed awake, a/ox4, pleasant and cooperative with care, follows commands well, is currently npo for possible MAGNOLIA with cardioversion, lungs are clear in upper jiménez, dim in bases, resp even and unlabored, no cough noted, on r/a at this time, hrirr, tele in place running afib per monitor, see strip, no edema noted, ppp+1, cap refill<3 sec, vs stable, afebrile, piv to john site is clear and patent, btx4, abd flat soft nontender, voids with out diff, skin c/w/d, moves upper ext well, legs are weak and has a recent ankle fx on the left, states recently got the cast off, reports he can transfer to chair and take a few steps, divya, call light in reach.
[2025-06-05 11:58] VITALS: BP 117/66
[2025-06-05 17:03] VITALS: BP 116/63
--- NOTE | 2025-06-05 19:33 | NUR ---
pt resting in bed most of the day, MAGNOLIA was cancelled as his rate is controlled, wants to go home, but will stay another day to monitor medications. no further changes this shift. call light in reach.
[2025-06-05 23:37] VITALS: BP 113/64
[2025-06-06 04:27] VITALS: BP 111/68
--- NOTE | 2025-06-06 04:35 | NUR ---
SHIFT SUMMARY PATIENT A/OX4, BEDREST THROUGHOUT THE SHIFT. REPOSITIONED. VITAL SIGNS WITHIN NORMAL LIMITS. NO ACUTE CHANGES. NO PAIN REPORTED. CATHETER DRAINING CLEAR YELLOW URINE TO GRAVITY. INCONTINENT EPISODE OF STOOL X1. TELE IN PLACE- AFIB IN THE 60'S. CBG 175 AT - NO COVERAGE INDICATED. PT UTILIZING CALL LIGHT APPROPRIATELY, CALL LIGHT IN REACH. BED IN LOWEST POSITION. WILL REPORT TO ONCOMING RN.
[2025-06-06 05:46] LABS: BASOPHILS ABSOLUTE AUTO 0.02 K/mm3 (0.00-0.23); BASOPHILS PERCENT AUTO 0 % (0-2); EOSINOPHILS ABSOLUTE AUTO 0.06 K/mm3 (0.00-0.68); EOSINOPHILS PERCENT AUTO 1 % (0-6); Hematocrit 24.2 % (37.0-53.0); Hemoglobin 7.7 g/dL (13.5-17.5); IMMATURE GRAN ABSOLUTE AUTO 0.09 K/mm3 (0.00-0.10); IMMATURE GRAN PERCENT AUTO 2 % (0-1); LYMPHOCYTES ABSOLUTE AUTO 0.40 K/mm3 (0.84-5.20); LYMPHOCYTES PERCENT AUTO 7 % (21-46); MONOCYTES ABSOLUTE AUTO 0.44 K/mm3 (0.16-1.47); MONOCYTES PERCENT AUTO 8 % (4-13); Mean Corpuscular HGB Conc 31.8 g/dL (31.5-36.5); Mean Corpuscular Volume 98 fL (80-100); NEUTROPHILS ABSOLUTE AUTO 4.83 K/mm3 (1.96-9.15); NEUTROPHILS PERCENT AUTO 83 % (41-73); NRBC ABSOLUTE 0.00 K/mm3 (0.00-0.02); NRBC Auto 0.0 /100 WBC (0.0-0.2); Platelet Count 96 K/mm3 (150-400); RDW Coefficient Variation 16.9 % (11.7-14.2); RDW Standard Deviation 60.5 fL (35.1-46.3)
[2025-06-06 07:32] VITALS: BP 107/68
[2025-06-06 11:20] LABS: Alanine Aminotransfer (ALT/SGP 40.0 U/L (12-78); Albumin, Blood 2.2 g/dL (3.4-5.0); Albumin/Globulin Ratio 0.6 (0.8-1.8); Anion Gap 11.0 mmol/L (3-11); Aspartate Aminotrans (AST/SGOT 39.0 U/L (12-37); Bilirubin, Total 1.0 mg/dL (0.1-1.0); Blood Urea Nitrogen 27.0 mg/dL (8-24); CO2, Blood 28.0 mmol/L (21-32); Calcium, Blood 9.7 mg/dL (8.5-10.1); Chloride, Blood 103.0 mmol/L (98-108); Creatinine, Blood 0.74 mg/dL (0.60-1.20); Globulin, Blood 3.8 g/dL (2.2-4.0); Glucose, Blood 107.0 mg/dL (70-99); Potassium, Blood 4.8 mmol/L (3.5-5.5); Sodium, Blood 137.0 mmol/L (136-145); Total Protein, Blood 6.0 g/dL (6.4-8.2)
[2025-06-06] MEDS ORDERED: Amiodarone HCl200 MG PO (14:37)
[2025-06-06] MEDS ORDERED: JARDIANCE10 MG PO (14:38)
[2025-06-06] MEDS ORDERED: AMIODARONE HCL400 M2 PO (14:38)
[2025-06-06] MEDS ORDERED: FURO20 PO (14:41)
[2025-06-06] MEDS ORDERED: METO50ER PO ×2 (14:42→14:45)
[2025-06-06] MEDS ORDERED: SPIR25 PO (14:50)
[2025-06-06] MEDS ORDERED: Prinivil10 MG PO (14:52)
--- NOTE | 2025-06-06 16:10 | NUR ---
SHIFT SUMMARY/DISCHARGE SUMMARY: PATIENT A+O X4 AND COOPERATIVE c NURSING CARE. PATIENT EXPRESSING WANTING TO GO HOME TODAY. SABILLON DRAINING TO GRAVITY c YELLOW URINE OUTPUT. S1, S2 HEARD UPON ASCULTATION AND BREATH SOUNDS CLEAR IN ALL LOBES. PATIENT MEDICATED PER EMAR THROUGHOUT SHIFT. THERAPY ATTEMPTED TO SEE PATIENT EARLIER THIS DAY, HOWEVER, PATIENT DECLINED. PATIENT DISCHARGED AROUND 1512. PATIENT EDUCATED ON NEW MEDICATIONS AND NOTIFIED OF FAX OVER TO [facility]. PATIENT ALSO EDUCATED ON ATRIAL FIBRILATION AND RAPID VENTRICULAR RESPONSE. THIS VOLUNTEER ASSISTANT DISCUSSED KEEPING FOLLOW-UP APPOINTMENTS WITH CARDIOLOGY, ONCOLOGY, AND PCP. PATIENT VERBALIZED UNDERSTANDING. BELONGINGS PACKED AND ROOM CLEARED.
== END 2025-06-06 15:40 | disposition home or self-care (01) | DRG 309 ==
LOC: ER 15:37 → ICUE 15:38 → ER 15:56 → PCU 15:56 → ICUE 20:50 → MEDS 05-31 14:55 → ICUE 05-31 14:56 → MEDS 06-03 00:53
PROVIDERS: Emergency Medicine; Family Medicine; Internal Medicine; Nurse Practitioner Acute Care; ADMIT Internal Medicine
PROC: 30233N1 Transfusion of Nonautologous Red Blood Cells into Peripheral Vein, Percutaneous Approach (ICD-10-PCS; principal; 2025-06-01)
DX: I48.92 Unspecified atrial flutter (principal); I50.22 Chronic systolic (congestive) heart failure; I48.91 Unspecified atrial fibrillation; K74.60 Unspecified cirrhosis of liver; E11.9 Type 2 diabetes mellitus without complications; C61 Malignant neoplasm of prostate; I11.0 Hypertensive heart disease with heart failure; I27.20 Pulmonary hypertension, unspecified; D63.0 Anemia in neoplastic disease; E78.00 Pure hypercholesterolemia, unspecified; N40.0 Benign prostatic hyperplasia without lower urinary tract symptoms; I44.1 Atrioventricular block, second degree; E87.6 Hypokalemia; R23.8 Other skin changes; I95.9 Hypotension, unspecified; R31.9 Hematuria, unspecified; Z96.652 Presence of left artificial knee joint; Z74.09 Other reduced mobility; Z88.1 Allergy status to other antibiotic agents; Z87.891 Personal history of nicotine dependence
CPT/HCPCS: 36415; 36430; 71045; 80048; 80053; 80162; 82270; 82607; 82728; 82746; 82947; 83540; 83550; 83605; 83735; 83880; 84132; 84443; 84484; 85014; 85018; 85025; 85610; 86850; 86900; 86901; 86923; 93005; 93010; 93306; 96361; 96365; 96366; 96368; 96375; 96376; 99285-25; A9270; G0378; J0282; J1160; J3475; J3480; J7030; J7040; J7050; J7060; J7120; P9016

== ENCOUNTER 2025-06-07 12:47 | Emergency (ER) | payer MEDICARE ==
[~2025-06-07] VITALS: Ht 185.4 cm; Wt 102.1 kg
[~2025-06-07 12:47] MED LIST changes: +AMIODARONE HCL400 M2 PO; +Amiodarone HCl200 MG PO; +CO Q10100 MG PO; +FURO20 PO; +JARDIANCE10 MG PO; +METO50ER PO; +PRESERVISION A1 EAC1 PO; +Prinivil10 MG PO; +SPIR25 PO
[2025-06-07 12:52] VITALS: BP 133/73
[2025-06-07] MEDS ORDERED: Lidocaine 2% Jelly Uro-Jet TOP ONE (13:40)
[2025-06-07 14:22] LABS: Calcium, Ionized (POC) 1.17 mmol/L (1.10-1.46); Chloride (POC) 104 mmol/L (98-108); Creatinine (POC) 1.1 mg/dL (0.8-1.3); Glucose (ISTAT POC) 150 mg/dL (70-99); Hematocrit (POC) 25.0 % (41.0-53.0); Hemoglobin (POC) 8.5 g/dL (13.5-17.5); Potassium (POC) 4.5 mmol/L (3.5-5.5); Sodium (POC) 135 mmol/L (135-148); Total CO2 (POC) 23 mmol/L (21-32)
== END 2025-06-07 14:40 | disposition home or self-care (01) ==
LOC: ER 12:47
PROVIDERS: Physician Assistant
DX: T83.091A Other mechanical complication of indwelling urethral catheter, initial encounter (principal); Y84.6 Urinary catheterization as the cause of abnormal reaction of the patient, or of later complication, without mention of misadventure at the time of the procedure; Z87.891 Personal history of nicotine dependence
CPT/HCPCS: 51702; 80047; 85014; 99283-25

== ENCOUNTER 2025-09-03 19:53 | Observation (INO) | payer MEDICARE ==
[~2025-09-03] VITALS: Ht 185.4 cm; Wt 103.6 kg
[2025-09-03 20:24] LABS: BASOPHILS ABSOLUTE AUTO 0.05 K/mm3 (0.00-0.23); BASOPHILS PERCENT AUTO 1 % (0-2); EOSINOPHILS ABSOLUTE AUTO 0.09 K/mm3 (0.00-0.68); EOSINOPHILS PERCENT AUTO 1 % (0-6); Hematocrit 33.1 % (37.0-53.0); Hemoglobin 10.9 g/dL (13.5-17.5); IMMATURE GRAN ABSOLUTE AUTO 0.16 K/mm3 (0.00-0.10); IMMATURE GRAN PERCENT AUTO 2 % (0-1); LYMPHOCYTES ABSOLUTE AUTO 0.35 K/mm3 (0.84-5.20); LYMPHOCYTES PERCENT AUTO 5 % (21-46); MONOCYTES ABSOLUTE AUTO 0.37 K/mm3 (0.16-1.47); MONOCYTES PERCENT AUTO 6 % (4-13); Mean Corpuscular HGB Conc 32.9 g/dL (31.5-36.5); Mean Corpuscular Volume 95 fL (80-100); NEUTROPHILS ABSOLUTE AUTO 5.63 K/mm3 (1.96-9.15); NEUTROPHILS PERCENT AUTO 85 % (41-73); NRBC ABSOLUTE 0.00 K/mm3 (0.00-0.02); NRBC Auto 0.0 /100 WBC (0.0-0.2); Platelet Count 78 K/mm3 (150-400); RDW Coefficient Variation 15.9 % (11.7-14.2); RDW Standard Deviation 55.4 fL (35.1-46.3)
[2025-09-03 20:37] LABS: Alanine Aminotransfer (ALT/SGP 23.0 U/L (12-78); Albumin, Blood 3.0 g/dL (3.4-5.0); Albumin/Globulin Ratio 0.9 (0.8-1.8); Anion Gap 11.0 mmol/L (3-11); Aspartate Aminotrans (AST/SGOT 18.0 U/L (12-37); Bilirubin, Total 1.0 mg/dL (0.1-1.0); Blood Urea Nitrogen 15.0 mg/dL (8-24); CO2, Blood 23.0 mmol/L (21-32); Calcium, Blood 8.8 mg/dL (8.5-10.1); Chloride, Blood 105.0 mmol/L (98-108); Creatinine, Blood 0.91 mg/dL (0.60-1.20); Globulin, Blood 3.4 g/dL (2.2-4.0); Glucose, Blood 235.0 mg/dL (70-99); Potassium, Blood 3.7 mmol/L (3.5-5.5); Sodium, Blood 135.0 mmol/L (136-145); Total Protein, Blood 6.4 g/dL (6.4-8.2)
[2025-09-03] MEDS ORDERED: Ondansetron HCl 2 MG / ML 2ML Vial IV ONE (21:05)
[2025-09-03] MEDS ORDERED: FentaNYL Citrate 50 MCG/ML 2 ML Injection IV ONE (21:05)
[2025-09-03] MEDS ORDERED: HYDROmorphone HCl/Pf 1MG SYR IV PRN (23:10)
[2025-09-04 00:07] VITALS: BP 138/90
[2025-09-04 02:59] VITALS: BP 125/80
[2025-09-04 03:07] LABS: BASOPHILS ABSOLUTE AUTO 0.02 K/mm3 (0.00-0.23); BASOPHILS PERCENT AUTO 0 % (0-2); EOSINOPHILS ABSOLUTE AUTO 0.03 K/mm3 (0.00-0.68); EOSINOPHILS PERCENT AUTO 1 % (0-6); Hematocrit 32.9 % (37.0-53.0); Hemoglobin 10.5 g/dL (13.5-17.5); IMMATURE GRAN ABSOLUTE AUTO 0.04 K/mm3 (0.00-0.10); IMMATURE GRAN PERCENT AUTO 1 % (0-1); LYMPHOCYTES ABSOLUTE AUTO 0.14 K/mm3 (0.84-5.20); LYMPHOCYTES PERCENT AUTO 2 % (21-46); MONOCYTES ABSOLUTE AUTO 0.43 K/mm3 (0.16-1.47); MONOCYTES PERCENT AUTO 7 % (4-13); Mean Corpuscular HGB Conc 31.9 g/dL (31.5-36.5); Mean Corpuscular Volume 97 fL (80-100); NEUTROPHILS ABSOLUTE AUTO 5.47 K/mm3 (1.96-9.15); NEUTROPHILS PERCENT AUTO 89 % (41-73); NRBC ABSOLUTE 0.00 K/mm3 (0.00-0.02); NRBC Auto 0.0 /100 WBC (0.0-0.2); Platelet Count 63 K/mm3 (150-400); RDW Coefficient Variation 16.1 % (11.7-14.2); RDW Standard Deviation 57.1 fL (35.1-46.3)
--- NOTE | 2025-09-04 03:09 | NUR ---
TRANSFER NOTE: PT AOX4, SLID FROM [facility], ORIENTED TO CALL LIGHT. BEDREST AT BL CURRENTLY SINCE BREAKING HIS ANKLE LAST YEAR AND HAVING TO START CHEMO WHILE GETTING PHYSICAL THERAPY. IS ABLE TO ASSIST IN ROLLS. STATES THAT THE CHEST PAIN IS NOW LOCATED ON HIS STERNUM IS WORSE ON INSPIRATION. PAIN IS WELL CONTROLED CURRENTLY. PLEASANT AND COOPERATIVE IN CARE. PRESSURE INJURY NOTED ON BOTTOM, PROVIDER NOTIFIED, MEPILEX IN PLACE. CONTINUING CARE.
[2025-09-04 03:32] LABS: Alanine Aminotransfer (ALT/SGP 20.0 U/L (12-78); Albumin, Blood 3.0 g/dL (3.4-5.0); Albumin/Globulin Ratio 0.9 (0.8-1.8); Anion Gap 10.0 mmol/L (3-11); Aspartate Aminotrans (AST/SGOT 14.0 U/L (12-37); Bilirubin, Total 1.0 mg/dL (0.1-1.0); Blood Urea Nitrogen 14.0 mg/dL (8-24); CO2, Blood 24.0 mmol/L (21-32); Calcium, Blood 8.9 mg/dL (8.5-10.1); Chloride, Blood 105.0 mmol/L (98-108); Creatinine, Blood 0.8 mg/dL (0.60-1.20); Globulin, Blood 3.2 g/dL (2.2-4.0); Glucose, Blood 178.0 mg/dL (70-99); Potassium, Blood 4.0 mmol/L (3.5-5.5); Sodium, Blood 135.0 mmol/L (136-145); Total Protein, Blood 6.2 g/dL (6.4-8.2)
--- NOTE | 2025-09-04 05:03 | NUR ---
SHIFT SUMMARY: PT AOX4, BEDBOUND SINCE LAST YEAR DUE TO ANKLE FX THEN STARTING CHEMO DURING PT AND HAS NOT BEEN ABLE TO FOLLOW UP. PLEASANT AND COOPERATIVE IN CARE. SUPRAPUBIC CATHETER IN PLACE, BAG CHANGED UPON ADMISSION. STATES CHEST PAIN IS MAINLY IN THE STERNUM, STATES IS BETTER THAN BEFORE BUT STILL PAINFUL. CLAY PIGEON SETTER STATES RHYTHM OF "LIGHT" A FLUTTER AT 80. WHICH IS WHAT PATIENT WAS ON THE EKG IN THE ED. PT TOLERATING MEDICATIONS WELL. VSS. IN BED SLEEPING, BED IN LOWEST POSITION ,CALL LIGHT IN REACH. CONTINUING CARE.
[2025-09-04] MEDS ORDERED: Mag Hydrox/Al Hydrox/Simeth 72 ML,Lidocaine 2% Viscous Soln 36 ML,Atropine/Scopalam/Hyo... PO PRN (06:35)
[2025-09-04 07:20] VITALS: BP 133/82
[2025-09-04] MEDS ORDERED: Insulin Human Lispro 100 Units/ML 3ML Syringe SC SCH (07:30)
[2025-09-04 10:55] VITALS: BP 120/82
[2025-09-04] MEDS ORDERED: PANT40 PO (15:58)
--- NOTE | 2025-09-04 16:31 | NUR ---
DISCHARGE NOTE PT DISCHARGED TO HOME, PICKED UP BY HIS . IV REMOVED, TELE RETURNED. DISCHARGE EDUCATION AND INFORMATION REVIEWED WITH THE PT. MEDICATIONS FAXED TO THE PHARMACY OF HIS CHOICE. PERSONAL BELONGINGS RETURNED.
== END 2025-09-04 16:30 | disposition home health service (06) ==
LOC: ER 19:53 → MEDS 19:54 → ENPENDDIS 09-04 15:31 → MEDS 09-04 16:30
PROVIDERS: Emergency Medicine; Student in an Organized Health Care Education/Training Program; ADMIT Internal Medicine
DX: R07.89 Other chest pain (principal); I50.9 Heart failure, unspecified; I11.0 Hypertensive heart disease with heart failure; I48.0 Paroxysmal atrial fibrillation; E87.1 Hypo-osmolality and hyponatremia; K74.60 Unspecified cirrhosis of liver; E78.00 Pure hypercholesterolemia, unspecified; E11.9 Type 2 diabetes mellitus without complications; Z88.1 Allergy status to other antibiotic agents; Z91.038 Other insect allergy status; Z87.891 Personal history of nicotine dependence; Z79.84 Long term (current) use of oral hypoglycemic drugs; Z79.899 Other long term (current) drug therapy
CPT/HCPCS: 36415; 71046; 71260; 80053; 82947; 83690; 83735; 83880; 84100; 84484; 85025; 93005; 93010; 96374-59; 96375; 96375-59; 97116; 97161; 99285-25; A9270; G0378; J1171; J2405; J3010

== ENCOUNTER 2025-11-04 22:36 | Emergency (ER) | payer MEDICARE ==
[~2025-11-04] VITALS: Ht 185.4 cm; Wt 100.2 kg
[~2025-11-04 22:36] MED LIST changes: +PANT40 PO
[2025-11-04 22:57] LABS: BASOPHILS ABSOLUTE AUTO 0.05 K/mm3 (0.00-0.23); BASOPHILS PERCENT AUTO 1 % (0-2); EOSINOPHILS ABSOLUTE AUTO 0.09 K/mm3 (0.00-0.68); EOSINOPHILS PERCENT AUTO 2 % (0-6); Hematocrit 37.6 % (37.0-53.0); Hemoglobin 12.3 g/dL (13.5-17.5); IMMATURE GRAN ABSOLUTE AUTO 0.06 K/mm3 (0.00-0.10); IMMATURE GRAN PERCENT AUTO 1 % (0-1); LYMPHOCYTES ABSOLUTE AUTO 0.38 K/mm3 (0.84-5.20); LYMPHOCYTES PERCENT AUTO 7 % (21-46); MONOCYTES ABSOLUTE AUTO 0.31 K/mm3 (0.16-1.47); MONOCYTES PERCENT AUTO 6 % (4-13); Mean Corpuscular HGB Conc 32.7 g/dL (31.5-36.5); Mean Corpuscular Volume 96 fL (80-100); NEUTROPHILS ABSOLUTE AUTO 4.52 K/mm3 (1.96-9.15); NEUTROPHILS PERCENT AUTO 84 % (41-73); NRBC ABSOLUTE 0.00 K/mm3 (0.00-0.02); NRBC Auto 0.0 /100 WBC (0.0-0.2); Platelet Count 95 K/mm3 (150-400); RDW Coefficient Variation 15.4 % (11.7-14.2); RDW Standard Deviation 54.0 fL (35.1-46.3)
[2025-11-04 23:18] LABS: Magnesium, Blood 2.0 mg/dL (1.6-2.4)
[2025-11-04 23:19] LABS: Alanine Aminotransfer (ALT/SGP 24.0 U/L (12-78); Albumin, Blood 3.1 g/dL (3.4-5.0); Albumin/Globulin Ratio 0.8 (0.8-1.8); Anion Gap 11.0 mmol/L (3-11); Aspartate Aminotrans (AST/SGOT 32.0 U/L (12-37); Bilirubin, Total 0.6 mg/dL (0.1-1.0); Blood Urea Nitrogen 11.0 mg/dL (8-24); CO2, Blood 20.0 mmol/L (21-32); Calcium, Blood 8.4 mg/dL (8.5-10.1); Chloride, Blood 109.0 mmol/L (98-108); Creatinine, Blood 0.87 mg/dL (0.60-1.20); Globulin, Blood 3.7 g/dL (2.2-4.0); Glucose, Blood 85.0 mg/dL (70-99); Potassium, Blood 3.0 mmol/L (3.5-5.5); Sodium, Blood 137.0 mmol/L (136-145); Total Protein, Blood 6.8 g/dL (6.4-8.2)
[2025-11-05 03:15] VITALS: BP 121/82
== END 2025-11-05 03:24 | disposition home or self-care (01) ==
LOC: ER 22:36
PROVIDERS: Student in an Organized Health Care Education/Training Program
DX: E16.2 Hypoglycemia, unspecified (principal); Z91.030 Bee allergy status; Z79.899 Other long term (current) drug therapy; I10 Essential (primary) hypertension; Z87.891 Personal history of nicotine dependence
CPT/HCPCS: 80053; 82947; 83735; 85025; 96374; 99285; A9270